=== PATIENT | male | born 1960 | race Caucasian/White ===

== ENCOUNTER 2018-12-01 09:05 | Outpatient (CLI) | payer OTHER ==
--- NOTE | 2018-12-01 13:50 | CT ---
CT CHEST WITH IV CONTRAST: CT ABDOMEN AND PELVIS WITH IV AND ORAL CONTRAST: HISTORY: Malignant neoplasm of the sigmoid colon, C18.7. Restaging. COMPARISON: Study from 12/09/2015. Prior study from the [facility] dated 06/25/2016. FINDINGS: The lungs are well inflated. No focal parenchymal lung mass. Bovine origin of the great vessels at the aortic arch. Calcified mediastinal lymph nodes are consistent with healed granulomatous disease. Very late phase IV contrast at the time of imaging due to technical difficulty at the time of scannin g. The liver, spleen, kidneys, adrenal glands, and pancreas have a normal CT appearance. The urinary bl adder is unremarkable. Postoperative changes of the sigmoid colon. Degenerative changes of the lumb ar spine. IMPRESSION: No evidence of recurrent or metastatic neoplasm. POS: [facility]
[2018-12-01] MEDS ORDERED: ISOVUE-370 76%-LOCM 1 ML ONE (14:48)
== END 2018-12-01 09:06 | disposition home or self-care (01) ==
LOC: BICCT 09:05
PROVIDERS: ATTEND Internal Medicine Hematology & Oncology
DX: C18.9 Malignant neoplasm of colon, unspecified (principal)
CPT/HCPCS: 71260; 74177; Q9966

== ENCOUNTER 2019-02-20 09:25 | Outpatient (CLI) | payer OTHER ==
--- NOTE | 2019-02-20 11:52 | MRI ---
MRI CERVICAL SPINE WITHOUT CONTRAST: Date: 02/20/19 HISTORY: Cervical spine pain, neck pain, other chronic pain. COMPARISON: None. FINDINGS: Vertebral body heights and marrow signal are maintained. There are disc osteophyte complexes with unc overtebral and facet hypertrophic changes at multiple levels. These result in moderate right and mild left neural foraminal stenosis at C4-5 level, severe right and mild left neural foraminal stenosis a t C5-6 level, and moderate right and mild left neural foraminal stenosis at C6-7 level. There is effa cement of the anterior thecal sac on the right with probable impingement of the anterior spinal cord at C5-6 level. No cord edema, syringomyelia, or myelomalacia is seen. No tonsillar herniation is note d. There is artifact on the exam, which reduces the sensitivity of the study. IMPRESSION: Cervical spondylosis with multilevel neural foraminal stenoses, right greater than left, as discussed above. POS: [facility]
== END 2019-02-20 09:26 | disposition home or self-care (01) ==
LOC: BICMRI 09:25
PROVIDERS: ATTEND Family Medicine
DX: M54.2 Cervicalgia (principal); G89.29 Other chronic pain; M47.812 Spondylosis without myelopathy or radiculopathy, cervical region; M48.02 Spinal stenosis, cervical region
CPT/HCPCS: 72141

== ENCOUNTER 2019-10-22 11:55 | Outpatient (CLI) | payer OTHER ==
--- NOTE | 2019-10-22 12:42 | RAD ---
Exam: Chest one view HISTORY:Pain Comparison: None FINDINGS: Lungs: No masses or consolidation. Cardiac silhouette:Accentuated by technique Pulmonary vessels: Normal Pleural Spaces: Clear Pneumothorax: None Osseous abnormalities: None of acuity. IMPRESSION: No focal consolidation. Accentuated cardiac silhouette.
--- NOTE | 2019-10-22 12:53 | RAD ---
XR Thoracic Spine 3 V STANDARD: 10/22/2019 12:00 AM CLINICAL INDICATION: Pain COMPARISON: None. FINDINGS: Fracture:No fracture. Arthropathy:Mild multilevel degenerative change Incidental findings:None of significance. IMPRESSION: 1. No acute osseous abnormality.
== END 2019-10-22 11:56 | disposition home or self-care (01) ==
LOC: BICRAD 11:55
PROVIDERS: ATTEND Family Medicine
DX: M54.6 Pain in thoracic spine (principal)
CPT/HCPCS: 71045; 72072

== ENCOUNTER 2019-11-19 09:18 | Outpatient (CLI) | payer OTHER ==
--- NOTE | 2019-11-19 10:31 | CT ---
CT of chest, abdomen, and pelvis: 11/19/2019 COMPARISON: 12/01/2018 HISTORY: Malignant neoplasm of sigmoid colon TECHNIQUE: Axial CT imaging obtained at 5 mm intervals from the thoracic inlet through the pubic symp hysis with intravenous and oral contrast. Coronal and sagittal reformatted imaging obtained. FINDINGS: No axillary, hilar, or mediastinal lymphadenopathy noted. No pleural, pericardial, or media stinal fluid noted. Mild scattered coronary arterial calcification. Calcified nodes in the subcarinal and left hilar kasia on noted, consistent with granulomatous disease. The lung parenchyma demonstrates no discrete mass lesion/suspicious nodule on either side. No endobronchial lesion is evident on this examination. Review of the osseous structures of the chest demonstrate no discrete worrisome lytic or blastic bone lesion. No free intraperitoneal air or fluid is evident on this examination. The liver, gallbladder, spleen, pancreas, adrenal glands, and kidneys demonstrate no acute findings. There is a faint hypodensity within the upper pole of the left kidney medially, stable into small to characterize. There is a mild degree of nonspecific hazy increased density in the perirectal/presacral fat. There i s a suture line within the distal colon. No evidence for bowel obstruction or focal bowel inflammatory change is noted. There are scattered diverticula involving the descending colon and sigm oid colon. The vascular structures of the abdomen/pelvis appear patent. No retroperitoneal or mesenteric lymphadenopathy is noted. There is a small new mildly enlarged lymph node in the perirectal fat laterally on the right measuring 6 mm. Osseous structures of the abdomen/pelvis demonstrate no worrisome lytic or blastic bone lesion. There is disc space narrowing with degenerative endplate change and bilateral facet hypertrophy at the L5-S1 level. IMPRESSION: There is new nonspecific hazy perirectal fat standing with a new subcentimeter node withi n the right aspect of the perirectal fat. This could be related to posttreatment/post radiation change. Recurrent malignant disease is a possibility as well. At a minimum, close follow-up CT examin ation suggested in 3 months. In the proper clinical setting, a pelvic MRI using a rectal cancer protocol may be beneficial for further assessment. [facility] T
[2019-11-19] MEDS ORDERED: ISOVUE-370 76%-LOCM 1 ML ONE (13:20)
== END 2019-11-19 09:19 | disposition home or self-care (01) ==
LOC: BICCT 09:18
PROVIDERS: ATTEND Internal Medicine Hematology & Oncology
DX: C18.7 Malignant neoplasm of sigmoid colon (principal)
CPT/HCPCS: 71260; 74177; Q9966

== ENCOUNTER 2019-11-27 12:23 | Outpatient (CLI) | payer OTHER ==
[2019-11-27] MEDS ORDERED: Magnevist 469MG/ML 20 ML VIAL ONE (14:30)
--- NOTE | 2019-11-27 15:02 | MRI ---
EXAM: MRI of the pelvis without and with contrast HISTORY: Rectal cancer staging COMPARISON: CT abdomen/pelvis 11/19/2019 TECHNIQUE: Multiplanar multisequence MR images were obtained of the pelvis without and with IV contra st. FINDINGS: There are areas of slight focal thickening of the wall of the rectum. No obvious mass is seen and the se areas of focal thickening appear to change on the different sequences and may be secondary to focal areas of decompressed colon. No obvious mass is seen in the perirectal fat. Pelvic lymph nodes: No pelvic or perirectal adenopathy Osseous structures: No marrow signal abnormality Other visualized intrapelvic structures: Unremarkable IMPRESSION: No definite rectal cancer or recurrence seen on this exam. Correlate with colonoscopy.
== END 2019-11-27 12:24 | disposition home or self-care (01) ==
LOC: MRI 12:23
PROVIDERS: ATTEND Internal Medicine Hematology & Oncology
DX: C18.7 Malignant neoplasm of sigmoid colon (principal); R93.7 Abnormal findings on diagnostic imaging of other parts of musculoskeletal system
CPT/HCPCS: 72197; A9579

== ENCOUNTER 2019-11-28 13:09 | Outpatient (CLI) | payer OTHER | END 2019-11-28 13:10 | disposition home or self-care (01) | LOC: DTY/OP 13:09 | PROVIDERS: ATTEND Surgery | DX: E66.01 Morbid (severe) obesity due to excess calories (principal) | CPT/HCPCS: 97802 ==

== ENCOUNTER 2023-12-29 09:16 | Outpatient (CLI) | payer BC | END 2023-12-29 09:17 | disposition home or self-care (01) | LOC: NM 09:16 | PROVIDERS: ATTEND Psychiatry & Neurology Neurology | DX: R29.818 Other symptoms and signs involving the nervous system (principal) | CPT/HCPCS: 78803; A9584 ==

== ENCOUNTER 2024-07-27 07:38 | Outpatient (CLI) | payer MEDICARE, BC | END 2024-07-27 07:39 | disposition home or self-care (01) | LOC: ULT 07:38 | PROVIDERS: ATTEND Family Medicine | DX: I65.21 Occlusion and stenosis of right carotid artery (principal) | CPT/HCPCS: 93880 ==